=== PATIENT | male | born 2000 | race Caucasian/White ===

== ENCOUNTER 2025-06-01 00:33 | Inpatient (IN) | payer MEDICARE ==
[2025-06-01 01:46] LABS: #Basophils 0.03 10x3/uL (0.0-0.2); #Eosinophils 0.27 10x3/uL (0.0-0.7); #Monocytes 0.76 10x3/uL (0.11-0.59); #Neutrophils 7.72 10x3/uL (1.40-6.50); %Basophils 0.3 % (0.0-1.0); %Eosinophils 2.5 % (0.0-10.0); %Lymphocytes 14.4 % (21.0-51.0); %Monocytes 7.1 % (0.0-10.0); %Neutrophils 71.8 % (42.0-75.0); Hematocrit 22.7 % (42.0-52.0); Hemoglobin 7.1 g/dL (14.0-18.0); Mean Corpuscular Hemoglobin 27.4 pg (27.0-31.0); Mean Corpuscular Volume 87.6 fL (78.0-98.0); Platelet Count 453 10x3/uL (130-400); Red Blood Cell (RBC) Count 2.59 mill/uL (4.70-6.10); White Blood Cell (WBC) Count 10.75 10x3/uL (4.8-10.8)
[2025-06-01 03:52] LABS: Sodium 136 mmol/L (136-145)
[2025-06-01 03:53] LABS: Albumin 3.0 g/dL (3.1-4.5); Calcium 8.4 mg/dL (7.8-10.44); Chloride 106 mmol/L (98-107); Potassium 4.0 mmol/L (3.5-5.1)
[2025-06-01 03:54] LABS: Globulin 3.2 g/dL (2.4-3.5); Glucose 90 mg/dL (70-105)
[2025-06-01 03:55] LABS: Anion Gap 13 mmol/L (10-20); Carbon Dioxide 21 mmol/L (22-29)
[2025-06-01 03:57] LABS: Alkaline Phosphatase 185 U/L (40-110); Bilirubin, Total 0.9 mg/dL (0.3-1.2)
[2025-06-01 03:58] LABS: BUN (Urea Nitrogen) 13 mg/dL (8.9-20.6); Calc. Creatinine Clearance 0 mL/min (70-130)
[2025-06-01 04:00] LABS: ALT (SGPT) 29 U/L (Less than 45); AST (SGOT) 154 U/L (11-34)
[2025-06-01 04:12] LABS: CK (CPK) 11209 U/L (30-200)
[2025-06-01] MEDS ORDERED: Ondansetron PF 4 MG/2 ML Vial IVP PRN (04:24)
[2025-06-01] MEDS ORDERED: Acetaminophen 325 MG TAB PO PRN (04:24)
[2025-06-01 05:31] VITALS: BMI 30.4
[2025-06-01 09:23] LABS: INR-International Normal Ratio 1.2; Prothrombin Time 15.7 sec (12.0-14.7)
[2025-06-01 09:24] LABS: PTT 40.1 sec (22.9-36.1)
[2025-06-01] MEDS: Baclofen 10 MG TAB PO SCH (10:27)
[2025-06-01] MEDS ORDERED: Iopamidol 370 76% 100 ML VIAL ONE (10:27)
[2025-06-01 10:44] LABS: Hematocrit 21.2 % (42.0-52.0); Hemoglobin 6.4 g/dL (14.0-18.0); Mean Corpuscular Hemoglobin 27.4 pg (27.0-31.0); Mean Corpuscular Volume 90.6 fL (78.0-98.0); Platelet Count 396 10x3/uL (130-400); Red Blood Cell (RBC) Count 2.34 mill/uL (4.70-6.10); White Blood Cell (WBC) Count 7.77 10x3/uL (4.8-10.8)
[2025-06-01] MEDS: Sulfameth/Trimethoprim DS 800-160mg TAB PO SCH (20:21)
[2025-06-02 06:08] LABS: Hematocrit 25.8 % (42.0-52.0); Hemoglobin 7.8 g/dL (14.0-18.0); Mean Corpuscular Hemoglobin 27.0 pg (27.0-31.0); Mean Corpuscular Volume 89.3 fL (78.0-98.0); Platelet Count 438 10x3/uL (130-400); Red Blood Cell (RBC) Count 2.89 mill/uL (4.70-6.10); White Blood Cell (WBC) Count 7.37 10x3/uL (4.8-10.8)
[2025-06-02 06:09] LABS: #Basophils 0.05 10x3/uL (0.0-0.2); #Eosinophils 0.26 10x3/uL (0.0-0.7); #Monocytes 0.44 10x3/uL (0.11-0.59); #Neutrophils 4.80 10x3/uL (1.40-6.50); %Basophils 0.7 % (0.0-1.0); %Eosinophils 3.5 % (0.0-10.0); %Lymphocytes 20.8 % (21.0-51.0); %Monocytes 6.0 % (0.0-10.0); %Neutrophils 65.2 % (42.0-75.0); Hematocrit 25.9 % (42.0-52.0); Hemoglobin 7.8 g/dL (14.0-18.0); Mean Corpuscular Hemoglobin 26.8 pg (27.0-31.0); Mean Corpuscular Volume 89.0 fL (78.0-98.0); Platelet Count 443 10x3/uL (130-400); Red Blood Cell (RBC) Count 2.91 mill/uL (4.70-6.10); White Blood Cell (WBC) Count 7.36 10x3/uL (4.8-10.8)
[2025-06-02 06:49] LABS: CK (CPK) 8957 U/L (30-200)
[2025-06-02 06:53] LABS: Anion Gap 12 mmol/L (10-20); BUN (Urea Nitrogen) 6 mg/dL (8.9-20.6); Calc. Creatinine Clearance 244 mL/min (70-130); Calcium 8.4 mg/dL (7.8-10.44); Carbon Dioxide 24 mmol/L (22-29); Chloride 110 mmol/L (98-107); Glucose 87 mg/dL (70-105); Potassium 4.0 mmol/L (3.5-5.1); Sodium 142 mmol/L (136-145)
[2025-06-02] MEDS ORDERED: Iopamidol-370 76% 500 ML MDV (1 ML CHARGE) ONE (11:38)
[2025-06-02 11:44] LABS: INR-International Normal Ratio 1.2; Prothrombin Time 15.0 sec (12.0-14.7)
[2025-06-02 11:45] LABS: PTT 37.4 sec (22.9-36.1)
[2025-06-03 05:53] LABS: #Basophils 0.05 10x3/uL (0.0-0.2); #Eosinophils 0.22 10x3/uL (0.0-0.7); #Monocytes 0.53 10x3/uL (0.11-0.59); #Neutrophils 5.10 10x3/uL (1.40-6.50); %Basophils 0.7 % (0.0-1.0); %Eosinophils 2.9 % (0.0-10.0); %Lymphocytes 19.4 % (21.0-51.0); %Monocytes 7.0 % (0.0-10.0); %Neutrophils 67.6 % (42.0-75.0); Hematocrit 26.2 % (42.0-52.0); Hemoglobin 7.8 g/dL (14.0-18.0); Mean Corpuscular Hemoglobin 26.5 pg (27.0-31.0); Mean Corpuscular Volume 89.1 fL (78.0-98.0); Platelet Count 406 10x3/uL (130-400); Red Blood Cell (RBC) Count 2.94 mill/uL (4.70-6.10); White Blood Cell (WBC) Count 7.54 10x3/uL (4.8-10.8)
[2025-06-03 06:48] LABS: CK (CPK) 4712 U/L (30-200)
[2025-06-03 06:50] LABS: Anion Gap 13 mmol/L (10-20); BUN (Urea Nitrogen) 5 mg/dL (8.9-20.6); Calc. Creatinine Clearance 236 mL/min (70-130); Calcium 8.3 mg/dL (7.8-10.44); Carbon Dioxide 23 mmol/L (22-29); Chloride 108 mmol/L (98-107); Glucose 85 mg/dL (70-105); Potassium 3.7 mmol/L (3.5-5.1); Sodium 140 mmol/L (136-145)
[2025-06-03] MEDS ORDERED: Lidocaine 1% PF 5 ML VIAL ONE (13:51)
[2025-06-03] MEDS ORDERED: PROPOFOL 20 ML ONE (13:51)
[2025-06-03] MEDS ORDERED: fentaNYL PF 100 MCG/2 ML SYRINGE ONE (13:51)
[2025-06-03] MEDS ORDERED: CEFAZOLIN 2 GM VIAL ONE (13:57)
[2025-06-03] MEDS ORDERED: PHENYLEPHRINE-NS 100 MCG/ML 10 ML SYRINGE ONE (14:32)
[2025-06-03] MEDS ORDERED: Thrombin 5000 UNITS/5 ML VIAL ONE (14:46)
[2025-06-03] MEDS ORDERED: Calcium Chloride 1 GM/10 ML Abboject SYRINGE ONE (15:00)
[2025-06-03] MEDS ORDERED: Ondansetron PF 4 MG/2 ML Vial ONE (15:01)
[2025-06-03] MEDS: Methocarbamol 500 MG TAB PO PRN (20:58)
[2025-06-04 05:32] LABS: #Basophils 0.03 10x3/uL (0.0-0.2); #Eosinophils 0.04 10x3/uL (0.0-0.7); #Monocytes 0.42 10x3/uL (0.11-0.59); #Neutrophils 7.32 10x3/uL (1.40-6.50); %Basophils 0.3 % (0.0-1.0); %Eosinophils 0.4 % (0.0-10.0); %Lymphocytes 10.4 % (21.0-51.0); %Monocytes 4.7 % (0.0-10.0); %Neutrophils 81.9 % (42.0-75.0); Hematocrit 25.3 % (42.0-52.0); Hemoglobin 7.6 g/dL (14.0-18.0); Mean Corpuscular Hemoglobin 26.9 pg (27.0-31.0); Mean Corpuscular Volume 89.4 fL (78.0-98.0); Platelet Count 400 10x3/uL (130-400); Red Blood Cell (RBC) Count 2.83 mill/uL (4.70-6.10); White Blood Cell (WBC) Count 8.95 10x3/uL (4.8-10.8)
[2025-06-04 05:57] LABS: Anion Gap 8 mmol/L (10-20); BUN (Urea Nitrogen) 8 mg/dL (8.9-20.6); CK (CPK) 1963 U/L (30-200); Calc. Creatinine Clearance 218 mL/min (70-130); Calcium 8.1 mg/dL (7.8-10.44); Carbon Dioxide 26 mmol/L (22-29); Chloride 107 mmol/L (98-107); Glucose 124 mg/dL (70-105); Potassium 3.8 mmol/L (3.5-5.1); Sodium 137 mmol/L (136-145)
[2025-06-04 12:36] VITALS: BMI 30.4
[2025-06-05 05:33] LABS: #Basophils 0.07 10x3/uL (0.0-0.2); #Eosinophils 0.23 10x3/uL (0.0-0.7); #Monocytes 0.56 10x3/uL (0.11-0.59); #Neutrophils 3.67 10x3/uL (1.40-6.50); %Basophils 1.1 % (0.0-1.0); %Eosinophils 3.5 % (0.0-10.0); %Lymphocytes 27.5 % (21.0-51.0); %Monocytes 8.5 % (0.0-10.0); %Neutrophils 55.6 % (42.0-75.0); Hematocrit 27.7 % (42.0-52.0); Hemoglobin 8.4 g/dL (14.0-18.0); Mean Corpuscular Hemoglobin 26.8 pg (27.0-31.0); Mean Corpuscular Volume 88.2 fL (78.0-98.0); Platelet Count 437 10x3/uL (130-400); Red Blood Cell (RBC) Count 3.14 mill/uL (4.70-6.10); White Blood Cell (WBC) Count 6.59 10x3/uL (4.8-10.8)
[2025-06-05 05:58] LABS: Anion Gap 10 mmol/L (10-20); BUN (Urea Nitrogen) 7 mg/dL (8.9-20.6); CK (CPK) 1066 U/L (30-200); Calc. Creatinine Clearance 236 mL/min (70-130); Calcium 8.5 mg/dL (7.8-10.44); Carbon Dioxide 25 mmol/L (22-29); Chloride 108 mmol/L (98-107); Glucose 93 mg/dL (70-105); Potassium 4.1 mmol/L (3.5-5.1); Sodium 139 mmol/L (136-145)
[2025-06-05 11:39] VITALS: BP 128/73; TEMP 97.9
== END 2025-06-05 14:15 | disposition home health service (06) | DRG 908 ==
LOC: ERS 00:33 → ERHOLD 04:21 → OBSVTOIN 04:57 → SURG A 09:02
PROVIDERS: ADMIT Internal Medicine; ATTEND Internal Medicine
PROC: 30233N1 Transfusion of Nonautologous Red Blood Cells into Peripheral Vein, Percutaneous Approach (ICD-10-PCS; 2025-06-01)
PROC: 0SCD0ZZ Extirpation of Matter from Left Knee Joint, Open Approach (ICD-10-PCS; principal; 2025-06-03)
PROC: 3E03329 Introduction of Other Anti-infective into Peripheral Vein, Percutaneous Approach (ICD-10-PCS; 2025-06-03)
DX: L76.32 Postprocedural hematoma of skin and subcutaneous tissue following other procedure (principal); D62 Acute posthemorrhagic anemia; M62.82 Rhabdomyolysis; G82.20 Paraplegia, unspecified; K21.9 Gastro-esophageal reflux disease without esophagitis; F39 Unspecified mood [affective] disorder; Y83.8 Other surgical procedures as the cause of abnormal reaction of the patient, or of later complication, without mention of misadventure at the time of the procedure; Z98.890 Other specified postprocedural states
CPT/HCPCS: 36415; 36430; 75635; 80048; 80053; 82550; 85025; 85610; 85730; 86850; 86900; 86901; 93970; 96360; 96361; J1100; J2405; J2704; J7030; P9016; Q9967

== ENCOUNTER 2025-09-09 17:26 | Emergency (ER) | payer MEDICARE ==
[2025-09-09 19:18] LABS: CAUTI Indications for Culture Pelvic or flank pain; Glucose, Urine (Dipstick) Normal (Negative); Leukocyte 500 Leu/uL (Negative); Protein, Urine (Dipstick) 70 mg/dL (Neg-Trace); RBC/HPF 21-50 HPF (0-3); Specific Gravity, Urine 1.029 (1.002-1.036); WBC/HPF Greater than 50 HPF (0-3)
[2025-09-09 19:19] LABS: Bacteria/HPF 1+ HPF (None Seen)
[2025-09-09 19:20] LABS: Urine Culture Reflex Yes Yes
[2025-09-09 19:22] LABS: ALT (SGPT) 21 U/L (Less than 45); AST (SGOT) 25 U/L (11-34); Albumin 3.9 g/dL (3.1-4.5); Alkaline Phosphatase 158 U/L (40-110); Anion Gap 14 mmol/L (10-20); BUN (Urea Nitrogen) 8 mg/dL (8.9-20.6); Bilirubin, Total 0.3 mg/dL (0.3-1.2); Calc. Creatinine Clearance 0 mL/min (70-130); Calcium 9.2 mg/dL (7.8-10.44); Carbon Dioxide 30 mmol/L (22-29); Chloride 99 mmol/L (98-107); Globulin 4.1 g/dL (2.4-3.5); Glucose 73 mg/dL (70-105); Potassium 3.8 mmol/L (3.5-5.1); Sodium 139 mmol/L (136-145)
[2025-09-09 19:26] LABS: #Basophils Less than 0.03 10x3/uL (0.0-0.2); #Eosinophils 0.03 10x3/uL (0.0-0.7); #Monocytes 0.33 10x3/uL (0.11-0.59); #Neutrophils 4.33 10x3/uL (1.40-6.50); %Basophils 0.4 % (0.0-1.0); %Eosinophils 0.5 % (0.0-10.0); %Lymphocytes 14.0 % (21.0-51.0); %Monocytes 6.0 % (0.0-10.0); %Neutrophils 78.6 % (42.0-75.0); Hematocrit 48.5 % (42.0-52.0); Hemoglobin 14.9 g/dL (14.0-18.0); Mean Corpuscular Hemoglobin 22.7 pg (27.0-31.0); Mean Corpuscular Volume 73.8 fL (78.0-98.0); Platelet Count 453 10x3/uL (130-400); Red Blood Cell (RBC) Count 6.57 mill/uL (4.70-6.10); White Blood Cell (WBC) Count 5.51 10x3/uL (4.8-10.8)
== END 2025-09-09 21:11 | disposition home or self-care (01) ==
LOC: ERS 17:26
DX: N50.811 Right testicular pain (principal); N50.812 Left testicular pain; T83.511A Infection and inflammatory reaction due to indwelling urethral catheter, initial encounter; F17.290 Nicotine dependence, other tobacco product, uncomplicated
CPT/HCPCS: 51701; 76870; 80053; 81001; 85025; 87077; 87086; 87186; 93976; 99284